=== PATIENT | female | born 1965 | race African-American/Black ===

== ENCOUNTER 2017-05-03 12:17 | Emergency (ER) | payer OTHER ==
[~2017-05-03] VITALS: Ht 149.9 cm; Wt 79.4 kg
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
[~2017-05-03 12:17] MED LIST: DOXYCYCLINE PO; HCTZ PO; METHERGINE; PRINIVIL10 MG PO; STAHIST TA1 TAB.SR . PO; TRAMADOL HCL50 M2 PO; TRIAMTERENE-HCT1 TA6 PO; ZANAFLEX4 M1 PO
== END 2017-05-03 17:00 | disposition home or self-care (01) ==
LOC: CED 12:17 → CFTX 12:17 → CED 14:40 → CFTX 14:40
DX: S02.31XA Fracture of orbital floor, right side, initial encounter for closed fracture (principal); S02.81XA Fracture of other specified skull and facial bones, right side, initial encounter for closed fracture; S01.111A Laceration without foreign body of right eyelid and periocular area, initial encounter; Y04.0XXA Assault by unarmed brawl or fight, initial encounter; Y92.009 Unspecified place in unspecified non-institutional (private) residence as the place of occurrence of the external cause; I10 Essential (primary) hypertension; I89.0 Lymphedema, not elsewhere classified; Z85.3 Personal history of malignant neoplasm of breast
CPT/HCPCS: 12011; 70480; 99284